=== PATIENT | female | born 1950 | race Caucasian/White ===

== ENCOUNTER 2020-01-14 12:54 | Inpatient (IN) | payer MEDICARE ==
[~2020-01-14] VITALS: Ht 167.6 cm; Wt 81.9 kg
[2020-01-14] MEDS ORDERED: BISACODYL 10 MG SUPP PR PRN ×2 (15:00→16:00)
[2020-01-14] MEDS ORDERED: POLYETHYLENE GLYCOL 17 GM PACKET PO PRN ×2 (15:00→16:00)
[2020-01-14] MEDS ORDERED: ACETAMINOPHEN 325 MG TABLET PO PRN ×2 (15:00→16:00)
[2020-01-14] MEDS ORDERED: DOCUSATE 100 MG CAPSULE PO PRN ×2 (15:00→16:00)
[2020-01-14] MEDS ORDERED: ONDANSETRON ODT 4 MG PO PRN ×2 (15:00→16:00)
[2020-01-14] MEDS ORDERED: PLEASE ENTER HEIGHT AND WEIGHT MC SCH (18:00)
[2020-01-14] MEDS ORDERED: PLEASE ENTER ALLERGIES MC SCH (18:00)
[2020-01-14 18:46] VITALS: BP 131/64
[2020-01-14 19:35] VITALS: BP 122/74
[2020-01-15] MEDS ORDERED: OMEP20CA20 PO (01:40)
[2020-01-15] MEDS ORDERED: VENL150T PO (01:40)
[2020-01-15] MEDS ORDERED: OXYC5TAB3 PO (01:40)
[2020-01-15 05:24] LABS: BASOPHILS # (AUTO) 0.03 x10^3/uL (0-0.1); BASOPHILS % (AUTO) 0 % (0-1); EOSINOPHILS # (AUTO) 0.26 x10^3/uL (0-0.4); EOSINOPHILS % (AUTO) 4 % (1-7); LYMPHOCYTES # (AUTO) 1.53 x10^3/uL (1-3.4); LYMPHOCYTES % (AUTO) 24 % (22-44); MD NO; MEAN CORPUSCULAR HEMOGLOBIN 33.5 pg (27.0-34.8); MEAN CORPUSCULAR HGB CONC 33.5 g/dL (32.4-35.8); MEAN CORPUSCULAR VOLUME 99.9 fL (80-100); MEAN PLATELET VOLUME 8.3 fL (7.4-10.4); MONOCYTES # (AUTO) 0.52 x10^3/uL (0.2-0.8); MONOCYTES % (AUTO) 8 % (2-9); NEUTROPHILS # (AUTO) 4.05 x10^3/uL (1.8-6.8); NEUTROPHILS % (AUTO) 63 % (42-75); PLATELET COUNT 158 x10^3/uL (130-400); RED CELL DISTRIBUTION WIDTH 14.1 % (9.6-15.2)
[2020-01-15 05:37] LABS: ALBUMIN 2.8 g/dL (3.4-5.0); CALCIUM 8.8 mg/dL (8.5-10.1); CHLORIDE 115 mmol/L (98-107)
[2020-01-15 05:50] LABS: MICROSCOPIC INDICATED
[2020-01-15 06:02] LABS: ALANINE AMINOTRANSFERASE 28 U/L (12-78); ALKALINE PHOSPHATASE 74 U/L (45-117); ANION GAP 7 mmol/L (5-15); BILIRUBIN, DIRECT 0.2 mg/dL (0.1-0.2); BILIRUBIN,INDIRECT 0.5 mg/dL (0.0-2.0); BILIRUBIN,TOTAL 0.7 mg/dL (0.2-1.0); CHOLESTEROL, TOTAL 170 mg/dL (140-239); CREATININE 0.59 mg/dL (0.55-1.02); FREE T4 (FREE THYROXINE) 1.08 ng/dL (0.76-1.46); HDL CHOL % 49 % (28-40); HDL CHOLESTEROL (DIRECT) 84 mg/dL (40-60); LDL CHOLESTEROL,CALCULATED 70 mg/dL (54-169); LDL/HDL RATIO 0.8 (0.5-3.0); TOTAL PROTEIN 6.4 g/dL (6.4-8.2); TRIGLYCERIDES 81 mg/dL (50-200); VLDL CHOLESTEROL 16 mg/dL (0-25)
[2020-01-15 07:39] VITALS: BP 110/71
[2020-01-15] MEDS: PANTOPRAZOLE 40MG TABLET PO SCH (08:02)
[2020-01-15] MEDS: LIDODERM 5% PATCH TD SCH (08:45)
[2020-01-15] MEDS ORDERED: VENLAFAXINE 75 MG CAP ER PO SCH (09:00)
[2020-01-15] MEDS: OXYcodone IR 5MG TABLET PO PRN ×2 (12:09→20:54)
[2020-01-15 19:47] VITALS: BP 149/85
[2020-01-16 07:37] VITALS: BP 131/78
[2020-01-16] MEDS: VENLAFAXINE 75 MG CAP ER PO SCH (08:41)
[2020-01-16] MEDS: PANTOPRAZOLE 40MG TABLET PO SCH (08:42)
[2020-01-16] MEDS: OXYcodone IR 5MG TABLET PO PRN ×3 (08:43→21:05)
[2020-01-16] MEDS: LIDODERM 5% PATCH TD SCH (08:43)
[2020-01-16 19:52] VITALS: BP 121/78
[2020-01-17 05:36] LABS: ANION GAP 10 mmol/L (5-15); CALCIUM 8.8 mg/dL (8.5-10.1); CHLORIDE 113 mmol/L (98-107); CREATININE 0.71 mg/dL (0.55-1.02)
[2020-01-17 07:00] VITALS: BP 134/84
[2020-01-17] MEDS: PANTOPRAZOLE 40MG TABLET PO SCH (08:01)
[2020-01-17] MEDS: VENLAFAXINE 75 MG CAP ER PO SCH (08:18)
[2020-01-17] MEDS: OXYcodone IR 5MG TABLET PO PRN ×3 (08:18→20:12)
[2020-01-17] MEDS: LIDODERM 5% PATCH TD SCH (08:20)
[2020-01-17 19:13] VITALS: BP 161/88
[2020-01-18 07:43] VITALS: BP 116/77
[2020-01-18] MEDS: PANTOPRAZOLE 40MG TABLET PO SCH (07:52)
[2020-01-18] MEDS: VENLAFAXINE 75 MG CAP ER PO SCH (07:53)
[2020-01-18] MEDS: LIDODERM 5% PATCH TD SCH (08:56)
[2020-01-18] MEDS ORDERED: OXYC5TAB3 PO (09:34)
[2020-01-18] MEDS ORDERED: LIDO700A20 TD (09:34)
[2020-01-18] MEDS ORDERED: PANT40TA5 PO (09:34)
[2020-01-18] MEDS ORDERED: VENL75CA6 PO (09:34)
[2020-01-18] MEDS: OXYcodone IR 5MG TABLET PO PRN (10:06)
== END 2020-01-18 10:33 | disposition home or self-care (01) | DRG 885 ==
LOC: 3E 15:19 → UNDOADMIN 15:19 → 3E 17:36
PROVIDERS: ADMIT Psychiatry & Neurology Psychosomatic Medicine; ATTEND Psychiatry & Neurology Psychosomatic Medicine
DX: F33.2 Major depressive disorder, recurrent severe without psychotic features (principal); F11.20 Opioid dependence, uncomplicated; T50.902A Poisoning by unspecified drugs, medicaments and biological substances, intentional self-harm, initial encounter; F12.90 Cannabis use, unspecified, uncomplicated; G89.4 Chronic pain syndrome; K21.9 Gastro-esophageal reflux disease without esophagitis; M19.90 Unspecified osteoarthritis, unspecified site; M41.9 Scoliosis, unspecified; F17.200 Nicotine dependence, unspecified, uncomplicated; C44.91 Basal cell carcinoma of skin, unspecified; Z81.8 Family history of other mental and behavioral disorders; Z82.0 Family history of epilepsy and other diseases of the nervous system; Z85.828 Personal history of other malignant neoplasm of skin; Z88.1 Allergy status to other antibiotic agents; Z88.5 Allergy status to narcotic agent; Z91.041 Radiographic dye allergy status
CPT/HCPCS: 36415; 71045; 80048; 80061; 80076; 81001; 82140; 82607; 84439; 84443; 85025; 87086; 93005